=== PATIENT | male | born 1955 | race Asian ===

== ENCOUNTER 2020-08-29 18:05 | Inpatient (IN) | payer OTHER ==
[~2020-08-29] VITALS: Ht 180.3 cm; Wt 107.6 kg
[2020-08-29 18:16] VITALS: Ht 180.3 cm; Wt 107.6 kg
[2020-08-29 19:06] LABS: CALCIUM 9.1 mg/dL (8.5-10.1); CARBON DIOXIDE 27.4 mmol/L (21-32); CREATININE SERUM 2.1 mg/dL (0.7-1.3); POTASSIUM SERUM 4.3 mmol/L (3.5-5.1)
[2020-08-29 19:12] LABS: ALBUMIN 3.9 g/dL (3.4-5.0); BILIRUBIN TOTAL 0.5 mg/dL (0.20-1.00); TOTAL PROTEIN, SERUM 7.4 g/dL (6.4-8.2)
[2020-08-29 19:15] LABS: BASOPHIL % 0.1 % (0-2); PLATELET COUNT 319 x10^3mcL (130-400); RED CELL DISTRIBUTION WIDTH 13.2 % (11.5-14.5)
[2020-08-29 20:55] LABS: CHOLESTEROL/HDL RATIO 5.7
[2020-08-29 20:59] LABS: T3 TOTAL 0.96 ng/mL
[2020-08-29 21:01] LABS: FREE T4 1.32 ng/dL (0.76-1.46); FREE THYROXINE INDEX 3.3 ug/dL (1.4-4.5); T4(THYROXINE) 7.8 ug/dL (4.7-13.3)
[2020-08-29] MEDS ORDERED: GLUMETZA500 MG (21:38)
[2020-08-29 22:25] VITALS: BP 105/52
[2020-08-30 03:05] LABS: UA SPECIFIC GRAVITY 1.015 (1.005-1.035); microscopic required? YES; urine erythrocyte NEGATIVE (NEGATIVE)
[2020-08-30 03:15] LABS: AMPHETAMINE QUAL UR NONE DETECTED (See below)
[2020-08-30 06:56] LABS: BASOPHIL % 0.3 % (0-2); PLATELET COUNT 279 x10^3mcL (130-400); RED CELL DISTRIBUTION WIDTH 13.2 % (11.5-14.5)
[2020-08-30 07:18] LABS: CALCIUM 8.5 mg/dL (8.5-10.1); CARBON DIOXIDE 24.6 mmol/L (21-32); CREATININE SERUM 1.6 mg/dL (0.7-1.3); POTASSIUM SERUM 3.8 mmol/L (3.5-5.1)
[2020-08-30 08:02] VITALS: BP 143/66
[2020-08-30 11:41] VITALS: BP 155/74
[2020-08-30 16:16] VITALS: BP 146/62
[2020-08-30 19:15] VITALS: BP 125/62
[2020-08-31 05:50] VITALS: BP 149/96
[2020-08-31 06:44] LABS: BASOPHIL % 0.3 % (0-2); PLATELET COUNT 284 x10^3mcL (130-400); RED CELL DISTRIBUTION WIDTH 12.9 % (11.5-14.5)
[2020-08-31 07:33] LABS: CALCIUM 8.5 mg/dL (8.5-10.1); CARBON DIOXIDE 29.2 mmol/L (21-32); CHLORIDE SERUM 103 mmol/L (98-107); GFR1 > 60 mL/min; GLUCOSE SERUM 168 mg/dL (74-106); MAGNESIUM 1.9 mg/dL (1.8-2.4); PHOSPHOROUS 3.7 mg/dL (2.5-4.9); POTASSIUM SERUM 3.7 mmol/L (3.5-5.1); SODIUM SERUM 138 mmol/L (136-145)
[2020-08-31 08:06] VITALS: BP 145/81
[2020-08-31 12:23] VITALS: BP 157/81
[2020-08-31 16:09] VITALS: BP 164/85
[2020-08-31 19:15] VITALS: BP 152/80
[2020-09-01 05:38] VITALS: BP 163/87
[2020-09-01 08:56] VITALS: BP 158/84
[2020-09-01 13:05] VITALS: BP 152/85
[2020-09-01] MEDS ORDERED: BAY PO ×2 (16:19→16:26)
[2020-09-01] MEDS ORDERED: CLOPIDOGREL75 M1 PO ×2 (16:19→16:26)
[2020-09-01] MEDS ORDERED: ATORVASTATIN CA80 M1 PO (16:19)
[2020-09-01 16:23] VITALS: BP 152/85
[2020-09-01] MEDS ORDERED: ZESTRIL10 MG PO (16:26)
[2020-09-01 16:51] VITALS: BP 170/86
== END 2020-09-01 17:25 | DRG 64 ==
LOC: ED 18:05 → DU 19:30
PROVIDERS: Emergency Medicine; ADMIT Student in an Organized Health Care Education/Training Program; ATTEND Student in an Organized Health Care Education/Training Program
DX: I63.9 Cerebral infarction, unspecified (principal); N17.0 Acute kidney failure with tubular necrosis; G81.94 Hemiplegia, unspecified affecting left nondominant side; E87.1 Hypo-osmolality and hyponatremia; E11.9 Type 2 diabetes mellitus without complications; I10 Essential (primary) hypertension; Z20.828 Contact with and (suspected) exposure to other viral communicable diseases; Z79.899 Other long term (current) drug therapy
CPT/HCPCS: 82962; 84439; 92526-GN; 92610-GN; 97116-GP; 97530-GP; G0378; J1815; J7030; Q0092; Q9967